=== PATIENT | male | born 1970 | race Caucasian/White ===

== ENCOUNTER 2016-10-25 12:29 | Emergency (ER) | payer MEDICARE, MEDICAID ==
[2016-10-25 12:55] LABS: % BASOPHILS 0.7 % (0.0-2.0); % EOSINOPHILS 0.6 % (0.0-5.0); % LYMPHOCYTES 22.2 % (20.0-50.0); % MONOCYTES 5.3 % (2.0-10.0); % NEUTROPHILS 71.2 % (40.0-80.0); HEMATOCRIT 32.7 % (39.0-49.0); HEMOGLOBIN 11.1 gm/dL (13.2-17.3); MEAN CELL VOLUME 89.9 fl (80-99); MEAN CORPUSCULAR HEMOGLOBIN 30.5 pg (26.0-30.0); MEAN CORPUSCULAR HGB CONC 33.9 pg (28.0-36.0); NEUTROPHILE ABSOLUTE 6.8 Th/cmm (1.8-8.0); PLATELET COUNT 424 Th/cmm (150-400); RED BLOOD COUNT 3.64 Mil/cmm (4.30-5.70); RED CELL DISTRIBUTION WIDTH 13.6 % (11.5-20.0); WHITE BLOOD COUNT 9.7 Th/cmm (4.8-10.8)
[2016-10-25 13:12] LABS: ALB/GLOB RATIO 1.5 (1.0-1.8); ALKALINE PHOSPHATASE 90 U/L (34-104); BILIRUBIN,TOTAL 0.4 mg/dL (0.3-1.0); BUN - UREA NITROGEN 24 mg/dL (7-25); BUN/CREATININE RATIO 26.7; CALCIUM SERUM 9.9 mg/dL (8.6-10.3); CARBON DIOXIDE 22.8 mEq/L (21.0-31.0); CHLORIDE 114 mEq/L (98-107); CREATININE - SERUM 0.9 mg/dL (0.7-1.3); GLUCOSE 117 mg/dL (70-105); POTASSIUM SERUM 3.8 mEq/L (3.5-5.1); SGOT 19 U/L (13-39); SGPT/ALT 40 U/L (7-52); SODIUM SERUM 141 mEq/L (136-145)
[2016-10-25] MEDS ORDERED: Sodium Chloride 0.9% 1,000 ML IV ONE (13:16)
--- NOTE | 2016-10-25 13:16 | ED Physician Chart ---
Chief Complaint/HPI - Patient Information Date Seen:: 10/25/16 Time Seen:: 13:16 Chief Complaint:: CONFUSION UNKN DURATION History of Present Illness:: This 46-year-old male was brought to the emergency department by EMS when he was found sitting on a park bench. A television crew had been filming regarding heat illness and it is assumed that they called 911. The patient was confused and unable to provide any significant history to EMS. I had to resort to having the patient respond yes or no to my questions. He has a prior history of schizophrenia and diabetes. He is allergic to penicillin. He denies any pain, difficulty breathing, nausea, vomiting or diarrhea. The patient does complain about hearing voices. He is unable to state what the voices are saying to him. Allergies:: Allergies Allergy/AdvReac Type Severity Reaction Status Date / Time Penicillins [PCN] AdvReac Verified 10/25/16 12:36 Vitals:: Vital Signs - 8 hr 10/25/16 12:36 HR 66 RR 16 BP 98/64 O2 Sat % 98 Review of Systems - Review of Systems General/Constitutional: No fever, No chills, No weakness, Diaphoresis, No edema Skin: No skin lesions, No rash Head: No headache, No light-headedness Eyes: No loss of vision, No diplopia ENT: No earache, No sore throat Neck: No neck pain, No swelling Cardio Vascular: No chest pain, No palpitations, No edema Pulmonary: No SOB, No cough, No wheezing GI: No nausea, No vomiting, No diarrhea G/U: No dysuria, No hematuria Musculoskeletal: No bone or joint pain, No back pain, No muscle pain Psychiatric: Auditory hallucination, Other Neurological: No syncope, Focal symptoms, No weakness, No headache, No seizure, No dizziness Past Medical History - Past Medical History Past Medical History: DM, Other (SCHIZOPHRENIA) Social History: Smoker, No Drug Use, Other (PT WITH PAST HISTORY OF ALCOHOL USE. QUIT SOME TIME AGO. ) Family Medical History - Family Member Maternal History Unknown: Yes Ethnicity: Living Status: Unknown Hx Family Cancer: No Hx Family Coronary Artery Disease: No Hx Family Congestive Heart Failure: No Hx Family Hypertension: No Hx Family Stroke: No Hx Family Diabetes: No Hx Family Seizures: No Hx Family Dementia: No Hx Family AIDS: No Hx Family HIV: No Hx Family COPD: No Hx Family Hepatitis: No Hx Family Psychiatric Problems: No Hx Family Tuberculosis: No Physical Exam - Physical Examination General/Constitutional: Awake, Well-developed, well-nourished, Alert, No distress, Non-toxic appearing, Ambulatory Head: Atraumatic Eyes: Lids, conjuctiva normal, PERRL, EOMI Other Eyes comments:: MILD ARCUS BILATERALLY Skin: No rash, No ecchymosis Other Skin comments:: STRETCH PEREZ OVER LOWER ABDOMEN ENMT: External ears, nose nl, TM canals nl, Lips, teeth, gums nl, Oropharynx nl , Tonsils nl Other ENMT comments:: ADEQUATE MUCOSAL HYDRATION Neck: Nontender, Full ROM w/o pain, No JVD, No nuchal rigidity, No mass, No stridor Respiratory: Nl effort/Exclusion, Clear to Auscultation, No Wheeze/Rhonchi/Rales Cardio Vascular: RRR, No murmur, gallop, rubs, NL S1 S2 Other Cardio Vascular comments:: ADEQUATE PULSES ALL 4 EXTREMITIES GI: No tenderness/rebounding/guarding, No organomegaly, No hernia, Nondistended , No mass/bruits, No McBurney tenderness Other GI comments:: RECTAL EXAM DEFERRED AT MY DISCRETION : No CVA tenderness, NL external genitalia Extremities: No tenderness or effusion, Full ROM, normal strength in all extremities, No edema Neuro/Psych: Normal sensory exam, Normal motor strength, Mood normal, Normal gait, No focal deficits Other Neuro/Psych comments:: ALERT. OR TO NAME AND PLACE BUT NOT TO DAY OR DATE Misc: Normal back, No paraspinal tenderness Labs/Radiology/EKG Results - Lab Results Results: Laboratory Tests 10/25/16 10/25/16 10/25/16 12:48 12:48 13:06 WBC 9.7 RBC 3.64 L Hgb 11.1 L Hct 32.7 L MCV 89.9 MCH 30.5 H MCHC Differential 33.9 RDW 13.6 Plt Count 424 H MPV 7.0 Neutrophils % 71.2 Lymphocytes % 22.2 Monocytes % 5.3 Eosinophils % 0.6 Basophils % 0.7 Sodium 141 Potassium 3.8 Chloride 114 H Carbon Dioxide 22.8 Anion Gap 8.0 BUN 24 Creatinine 0.9 Est GFR ( Amer) > 60.0 Est GFR (Non-Af Amer) > 60.0 BUN/Creatinine Ratio 26.7 Glucose 117 H POC Glucose 99 Calcium 9.9 Total Bilirubin 0.4 AST 19 ALT 40 Alkaline Phosphatase 90 Total Protein 6.6 Albumin 4.0 L Globulin 2.6 Albumin/Globulin Ratio 1.5 CBC with no Leukocytosis and with mild anemia. Chemistry studies were within normal limits except for a mildly elevated chloride of 117 which was not clinically significant. Assessment - Assessment General Assessment: CASE SUMMARY: This 46 year old male was brought to the ED by EMS for possible heat stroke. Pt was seen sitting on bench in park and appeared confused Upon arrival in the ED PT was awake and alert. He was boarder line hypotensive (BP 98/64). Temp of 99.0. Poor historian which was attributed to diagnosis of schizophrenia. Laboratory studies were unremarkable. Patient was rehydrated with 2 L of normal saline. The patient eloped from the emergency department without notification of nursing or myself. A search of the premises failed to turn up the patient. MDM POSSIBLE HEAT ILLNESS: NOT heat stroke based on pt's vital signs, exam and history of schizophrenia that explains pt's confusion. NOT heat syncope based on pt's history. ED Septic Shock - . Is Septic Shock (SBP<90, OR Lactate>4 mmol\L) present?: No - <6hrs of presentation: Vital Signs: Vital Signs - 8 hr /12/04 12:36 HR 66 RR 16 BP 98/64 O2 Sat % 98 Reassessment (Disposition) - Reassessment Reassessment Condition:: Unchanged, Improved - Diagnosis Diagnosis:: SCHIZOPHRENIA, DEHYDRATION ED Discharge Plan - Patient Disposition Admit/Discharge/Transfer: PATIENT ELOPED Condition at Disposition: Improved
[2016-10-25] MEDS ORDERED: Sodium Chloride 0.45% 1,000 ML IV ONE (13:53)
== END 2016-10-25 14:55 | disposition left against medical advice (07) ==
LOC: ER 12:29
DX: F20.9 Schizophrenia, unspecified (principal); E86.0 Dehydration; E11.9 Type 2 diabetes mellitus without complications; Z88.0 Allergy status to penicillin
CPT/HCPCS: 36415-UA; 80053-TC; 80320-TC; 82550-TC; 82948-90; 85025-TC; 93005; J7030